=== PATIENT | male | born 1960 | race Caucasian/White ===

== ENCOUNTER → 2017-01-08 | Outpatient (CLI) | payer BC ==
[~2017-01-08] MED LIST: ASPI81TA2 PO; CYCL15CA18 PO; PIRO20CA PO
--- NOTE | 2017-01-08 10:31 | DI ---
Indication: ITS.REASON: M25.561 PAIN IN RIGHT KNEE PROCEDURE: KNEE RIGHT 3 VIEWS: Encounter: Initial Comparison: None Findings: There is no acute fracture, dislocation or malalignment identified. There is advanced degenerative disc disease with hypertrophic bony changes predominantly of the patellofemoral joint compartment but also milder changes of the medial greater than lateral joint compartment. No definite effusion. There is a remote avulsion of the anterior tibial tubercle. Impression: Moderate osteoarthritis without displaced fracture or bony destructive process. .
== END ==
LOC: IMA 10:02
PROVIDERS: ATTEND Family Medicine
DX: M17.11 Unilateral primary osteoarthritis, right knee (principal)